=== PATIENT | female | born 1995 | race Caucasian/White ===

== ENCOUNTER 2022-03-23 18:58 | Inpatient (IN) | payer MEDICAID ==
[~2022-03-23] VITALS: Ht 172.7 cm; Wt 74.9 kg
[2022-03-23 19:58] LABS: AMPHET/METH SCREEN,URINE NEGATIVE (NEGATIVE); BARBITURATE SCREEN, URINE NEGATIVE (NEGATIVE); BENZODIAZEPINES SCREEN,URINE NEGATIVE (NEGATIVE); CANNABINOID SCREEN,URINE NEGATIVE (NEGATIVE); COCAINE SCREEN,URINE NEGATIVE (NEGATIVE); METHADONE SCREEN, URINE NEGATIVE (NEGATIVE); OPIATE SCREEN,URINE NEGATIVE (NEGATIVE); PHENCYCLIDINE SCREEN,URINE NEGATIVE (NEGATIVE)
[2022-03-23 20:09] LABS: BASOPHILS % (AUTO) 0.5 % (0.0-2.0); EOSINOPHILS % (AUTO) 0.7 % (1.0-6.0); HEMATOCRIT 42.8 % (36-46); HEMOGLOBIN 14.6 g/dL (12.0-16.0); LYMPHOCYTES # (AUTO) 5.7 K/uL (1.0-4.8); LYMPHOCYTES % (AUTO) 49.1 % (22.0-44.0); MEAN CORPUSCULAR HEMOGLOBIN 31.8 pg (26.0-34.0); MEAN CORPUSCULAR VOLUME 94 fL (80-100); MONOCYTES # (AUTO) 0.5 K/uL (0.1-1.0); MONOCYTES % (AUTO) 4.2 % (2.0-9.0); NEUTROPHILS # (AUTO) 5.3 K/uL (1.8-7.7); NEUTROPHILS % (AUTO) 45.5 % (40.0-70.0); PLATELET COUNT (AUTO) 347 K/uL (150-450); RED BLOOD CELL COUNT(AUTO) 4.57 MIL/uL (4.00-5.20); RED CELL DISTRIBUTION WIDTH 13.2 % (11.5-14.5)
[2022-03-23 20:17] LABS: ANION GAP 14 mmol/L (8-16); CALCIUM, TOTAL 7.9 mg/dL (8.8-10.5); CARBON DIOXIDE 22 mmol/L (22-29); CHLORIDE 105 mmol/L (98-107); CREATININE 0.71 mg/dL (0.60-1.30); GLOMERULAR FILTR. RATE CALC > 60 mL/min (>60); GLUCOSE,RANDOM 91 mg/dL (70-110); POTASSIUM 3.9 mmol/L (3.5-5.1); SODIUM SERUM 141 mmol/L (136-145); UREA NITROGEN, BLOOD 7 mg/dL (7-18)
[2022-03-23 20:20] LABS: COVID AG,FIA SOURCE NASOPHARYNGEAL
[2022-03-23 20:23] LABS: ALANINE AMINOTRANSFERASE 15 U/L (12-78); ALBUMIN 3.3 g/dL (3.4-5.0); ALKALINE PHOSPHATASE 70 U/L (46-116); ASPARTATE AMINOTRANSFERASE 17 U/L (15-37); BILIRUBIN,TOTAL 0.2 mg/dL (0.1-1.0); TOTAL PROTEIN, SERUM 6.3 g/dL (6.4-8.2)
[2022-03-23] MEDS ORDERED: ZOLPIDEM TARTRATE 10 MG TABLET PO PRN (20:45)
[2022-03-23] MEDS ORDERED: HALOPERIDOL 5 MG TABLET PO PRN (20:45)
[2022-03-23 21:01] LABS: APPEARANCE,URINE CLEAR (CLEAR); BILIRUBIN,URINE NEGATIVE (NEGATIVE); GLUCOSE, URINE (UA) NEGATIVE (NEGATIVE); KETONES,URINE NEGATIVE (NEGATIVE); LEUKOCYTE ESTERASE ,URINE NEGATIVE (NEGATIVE); NITRATE,URINE NEGATIVE (NEGATIVE); OCCULT BLOOD,URINE TRACE (NEGATIVE); PROTEIN,URINE NEGATIVE (NEGATIVE); SPECIFIC GRAVITIY, URINE 1.006 (1.003-1.030); UROBILINOGEN,URINE <=1.0 mg/dL (<=1.0)
[2022-03-23 21:15] LABS: BACTERIA,URINE Few /HPF (None Seen); RBC,URINE 0-2 /HPF (0-2); SQUAMOUS EPITHELIAL CELL,UR Few /LPF (None Seen); WBC,URINE 0-2 /HPF (0-5)
[2022-03-24] MEDS: LORazepam 2 MG TABLET PO PRN ×2 (01:46→09:49)
[2022-03-24 04:06] VITALS: BP 130/88
[2022-03-24 04:08] VITALS: BP 130/88
[2022-03-24] MEDS ORDERED: GuaiFENesin/D-METHORPHAN [SUGAR-FREE] 200-20MG/10 ML SYRUP UDCUP PO PRN (07:00)
[2022-03-24] MEDS ORDERED: MAG HYDROX/AL HYDROX/SIMETH ES 30 ML SUSPENSION UDCUP PO PRN (07:00)
[2022-03-24] MEDS ORDERED: IBUPROFEN 400 MG TABLET PO PRN (07:00)
[2022-03-24] MEDS ORDERED: ALBUTEROL SULFATE HFA 90 MCG/PUFF 8 GM INHALER IH PRN (07:00)
[2022-03-24] MEDS ORDERED: CloNIDine HCL 0.1 MG TABLET PO PRN (07:00)
[2022-03-24] MEDS ORDERED: DOCUSATE SODIUM 100 MG CAPSULE PO PRN (07:00)
[2022-03-24] MEDS ORDERED: NICOTINE 14 MG/24 HOUR PATCH TD PRN (07:00)
[2022-03-24] MEDS ORDERED: ACETAMINOPHEN 325 MG TABLET PO PRN (07:00)
[2022-03-24] MEDS ORDERED: LOPERAMIDE HCL 2 MG CAPSULE PO PRN (07:00)
[2022-03-24] MEDS ORDERED: MAGNESIUM HYDROXIDE SUSPENSION 30 ML UDCUP PO PRN (07:00)
[2022-03-24] MEDS ORDERED: PETROLATUM,WHITE 28 GM JELLY TP PRN (07:00)
[2022-03-24] MEDS ORDERED: ONDANSETRON HCL 4 MG TABLET PO PRN (07:00)
[2022-03-24 08:00] VITALS: BP 133/75
[2022-03-24] MEDS: PROPRANOLOL HCL 10 MG TABLET PO SCH ×2 (10:38→16:36)
[2022-03-24] MEDS: HydrOXYzine PAMOATE 25 MG CAPSULE PO SCH ×2 (10:39→16:36)
[2022-03-24] MEDS: FLUoxetine HCL 20 MG CAPSULE PO SCH (10:39)
[2022-03-24] MEDS: LamoTRIgine 25 MG TABLET PO SCH (10:39)
[2022-03-24 16:00] VITALS: BP 119/69
[2022-03-25] MEDS: HydrOXYzine PAMOATE 25 MG CAPSULE PO SCH ×2 (08:52→16:39)
[2022-03-25] MEDS: LamoTRIgine 25 MG TABLET PO SCH (08:53)
[2022-03-25] MEDS: FLUoxetine HCL 20 MG CAPSULE PO SCH (08:53)
[2022-03-25] MEDS: PROPRANOLOL HCL 10 MG TABLET PO SCH ×2 (08:53→16:39)
[2022-03-25 08:54] VITALS: BP 125/78
[2022-03-25] MEDS ORDERED: PETROLATUM,WHITE 28 GM JELLY TP PRN (10:45)
[2022-03-25] MEDS ORDERED: GuaiFENesin/D-METHORPHAN [SUGAR-FREE] 200-20MG/10 ML SYRUP UDCUP PO PRN (10:45)
[2022-03-25] MEDS ORDERED: DOCUSATE SODIUM 100 MG CAPSULE PO PRN (10:45)
[2022-03-25] MEDS ORDERED: NICOTINE 14 MG/24 HOUR PATCH TD PRN (10:45)
[2022-03-25] MEDS ORDERED: IBUPROFEN 400 MG TABLET PO PRN (10:45)
[2022-03-25] MEDS ORDERED: LOPERAMIDE HCL 2 MG CAPSULE PO PRN (10:45)
[2022-03-25] MEDS ORDERED: MAGNESIUM HYDROXIDE SUSPENSION 30 ML UDCUP PO PRN (10:45)
[2022-03-25] MEDS ORDERED: ALBUTEROL SULFATE HFA 90 MCG/PUFF 8 GM INHALER IH PRN (10:45)
[2022-03-25] MEDS ORDERED: ACETAMINOPHEN 325 MG TABLET PO PRN (10:45)
[2022-03-25] MEDS ORDERED: ONDANSETRON HCL 4 MG TABLET PO PRN (10:45)
[2022-03-25] MEDS ORDERED: CloNIDine HCL 0.1 MG TABLET PO PRN (10:45)
[2022-03-25] MEDS ORDERED: MAG HYDROX/AL HYDROX/SIMETH ES 30 ML SUSPENSION UDCUP PO PRN (10:45)
[2022-03-25 16:38] VITALS: BP 117/81
[2022-03-26 08:00] VITALS: BP 118/80
[2022-03-26] MEDS: LamoTRIgine 25 MG TABLET PO SCH (08:21)
[2022-03-26] MEDS: PROPRANOLOL HCL 10 MG TABLET PO SCH ×2 (08:21→16:30)
[2022-03-26] MEDS: FLUoxetine HCL 20 MG CAPSULE PO SCH (08:21)
[2022-03-26] MEDS: HydrOXYzine PAMOATE 25 MG CAPSULE PO SCH ×2 (08:21→16:30)
[2022-03-26] MEDS: LORazepam 2 MG TABLET PO PRN (09:59)
[2022-03-26] MEDS: GABAPENTIN 100 MG CAPSULE PO SCH ×3 (12:26→20:38)
[2022-03-26 16:00] VITALS: BP 103/64
[2022-03-27 08:00] VITALS: BP 128/86
[2022-03-27 08:26] LABS: BASOPHILS % (AUTO) 0.8 % (0.0-2.0); EOSINOPHILS % (AUTO) 1.7 % (1.0-6.0); HEMATOCRIT 38.9 % (36-46); HEMOGLOBIN 13.2 g/dL (12.0-16.0); LYMPHOCYTES # (AUTO) 2.2 K/uL (1.0-4.8); LYMPHOCYTES % (AUTO) 39.2 % (22.0-44.0); MEAN CORPUSCULAR HEMOGLOBIN 32.4 pg (26.0-34.0); MEAN CORPUSCULAR VOLUME 95 fL (80-100); MONOCYTES # (AUTO) 0.2 K/uL (0.1-1.0); NEUTROPHILS % (AUTO) 54.3 % (40.0-70.0); PLATELET COUNT (AUTO) 266 K/uL (150-450); RED BLOOD CELL COUNT(AUTO) 4.08 MIL/uL (4.00-5.20); RED CELL DISTRIBUTION WIDTH 12.7 % (11.5-14.5)
[2022-03-27] MEDS: PROPRANOLOL HCL 10 MG TABLET PO SCH ×2 (08:33→16:32)
[2022-03-27] MEDS: GABAPENTIN 100 MG CAPSULE PO SCH ×3 (08:33→20:23)
[2022-03-27] MEDS: FLUoxetine HCL 20 MG CAPSULE PO SCH (08:33)
[2022-03-27] MEDS: HydrOXYzine PAMOATE 25 MG CAPSULE PO SCH ×2 (08:33→16:32)
[2022-03-27] MEDS: LamoTRIgine 25 MG TABLET PO SCH (08:33)
[2022-03-27] MEDS: LORazepam 2 MG TABLET PO PRN (08:42)
[2022-03-27 16:52] VITALS: BP 97/60
[2022-03-28] MEDS: GABAPENTIN 100 MG CAPSULE PO SCH (08:46)
[2022-03-28] MEDS: LamoTRIgine 25 MG TABLET PO SCH (08:46)
[2022-03-28] MEDS: PROPRANOLOL HCL 10 MG TABLET PO SCH (08:46)
[2022-03-28] MEDS: FLUoxetine HCL 20 MG CAPSULE PO SCH (08:46)
[2022-03-28] MEDS: HydrOXYzine PAMOATE 25 MG CAPSULE PO SCH (08:46)
[2022-03-28 09:57] VITALS: BP 118/62
[2022-03-28] MEDS ORDERED: GABA-1216 PO (11:46)
[2022-03-28] MEDS ORDERED: HYDR-4808 PO (11:46)
[2022-03-28] MEDS ORDERED: PROP10TA72 PO (11:46)
[2022-03-28] MEDS ORDERED: LAMO25TA66 PO (11:46)
[2022-03-28] MEDS ORDERED: PROZ20 PO (11:46)
== END 2022-03-28 14:45 | disposition home or self-care (01) | DRG 753 ==
LOC: EMS 18:58 → 3EI 03-24 00:08 → UNDOADMIN 03-24 00:08
PROVIDERS: ADMIT Psychiatry & Neurology Psychiatry; ATTEND Psychiatry & Neurology Psychiatry
DX: F31.4 Bipolar disorder, current episode depressed, severe, without psychotic features (principal); Z91.14 Patient's other noncompliance with medication regimen; D72.829 Elevated white blood cell count, unspecified; Z20.822 Contact with and (suspected) exposure to COVID-19; F10.20 Alcohol dependence, uncomplicated; F17.200 Nicotine dependence, unspecified, uncomplicated; F41.9 Anxiety disorder, unspecified; Y90.8 Blood alcohol level of 240 mg/100 ml or more; F19.10 Other psychoactive substance abuse, uncomplicated; Z80.3 Family history of malignant neoplasm of breast; Z91.51 Personal history of suicidal behavior; Z71.6 Tobacco abuse counseling; Z79.899 Other long term (current) drug therapy
CPT/HCPCS: 80053; 81001; 85025; 99285; G0480

== ENCOUNTER 2022-03-28 22:01 | Emergency (ER) | payer MEDICAID ==
[~2022-03-28] VITALS: Ht 172.7 cm; Wt 74.9 kg
[~2022-03-28 22:01] MED LIST: GABA-1216 PO; HYDR-4808 PO; LAMO25TA66 PO; PROP10TA72 PO; PROZ20 PO
[2022-03-29 03:24] LABS: BASOPHILS % (AUTO) 0.8 % (0.0-2.0); EOSINOPHILS % (AUTO) 1.2 % (1.0-6.0); HEMATOCRIT 41.3 % (36-46); HEMOGLOBIN 14.1 g/dL (12.0-16.0); LYMPHOCYTES # (AUTO) 2.8 K/uL (1.0-4.8); LYMPHOCYTES % (AUTO) 47.2 % (22.0-44.0); MEAN CORPUSCULAR HEMOGLOBIN 32.2 pg (26.0-34.0); MEAN CORPUSCULAR HGB CONC 34.1 G/dL (31.0-37.0); MEAN CORPUSCULAR VOLUME 95 fL (80-100); MONOCYTES # (AUTO) 0.3 K/uL (0.1-1.0); MONOCYTES % (AUTO) 5.4 % (2.0-9.0); NEUTROPHILS # (AUTO) 2.7 K/uL (1.8-7.7); NEUTROPHILS % (AUTO) 45.4 % (40.0-70.0); PLATELET COUNT (AUTO) 295 K/uL (150-450); RED BLOOD CELL COUNT(AUTO) 4.37 MIL/uL (4.00-5.20); RED CELL DISTRIBUTION WIDTH 12.9 % (11.5-14.5)
[2022-03-29 03:32] LABS: ANION GAP 4 mmol/L (8-16); CARBON DIOXIDE 31 mmol/L (22-29); CHLORIDE 106 mmol/L (98-107); CREATININE 0.74 mg/dL (0.60-1.30); GLOMERULAR FILTR. RATE CALC > 60 mL/min (>60); GLUCOSE,RANDOM 95 mg/dL (70-110); POTASSIUM 4.9 mmol/L (3.5-5.1); SODIUM SERUM 141 mmol/L (136-145); UREA NITROGEN, BLOOD 14 mg/dL (7-18)
[2022-03-29 03:43] LABS: ALANINE AMINOTRANSFERASE 21 U/L (12-78); ALBUMIN 3.5 g/dL (3.4-5.0); ALKALINE PHOSPHATASE 66 U/L (46-116); ASPARTATE AMINOTRANSFERASE 16 U/L (15-37); BILIRUBIN,TOTAL 0.2 mg/dL (0.1-1.0); HCG,QUANTITATIVE < 1 mIU/mL (0-6)
[2022-03-29 06:54] VITALS: BP 101/62
[2022-03-29] MEDS ORDERED: ONDANSETRON HCL 4 MG TABLET PO ONE (10:45)
== END 2022-03-29 11:32 | disposition home or self-care (01) ==
LOC: EMS 22:04
DX: F31.4 Bipolar disorder, current episode depressed, severe, without psychotic features (principal); F17.210 Nicotine dependence, cigarettes, uncomplicated; Z86.59 Personal history of other mental and behavioral disorders
CPT/HCPCS: 36415; 80053; 84702; 85025; 99283; G0480; Q0162